=== PATIENT | male | born 1955 | race Caucasian/White ===

== ENCOUNTER 2016-08-31 09:41 | Inpatient (IN) | payer MEDICARE ==
[~2016-08-31] VITALS: Ht 172.7 cm; Wt 58.0 kg
[2016-08-31] MEDS ORDERED: CEFEPIME 2GM/50 ML (PMX) 50 ML IVPB STA (09:46)
[2016-08-31] MEDS ORDERED: SODIUM CHLORIDE 0.9% 1L BAG IV* STA (09:46)
[2016-08-31] MEDS ORDERED: ALBUTEROL 0.083% (NEB) 2.5 MG/3 ML AMP NEB STA (09:46)
[2016-08-31] MEDS ORDERED: IPRATROPIUM (NEB) 0.5 MG/2.5 ML AMP NEB STA (09:46)
[2016-08-31] MEDS ORDERED: METHYLPREDNISOLONE 125 MG INJ IV STA (09:46)
[2016-08-31] MEDS ORDERED: VANCOMYCIN 1 GM (PMX) 250 ML IVPB STA (09:46)
[2016-08-31 09:52] VITALS: Ht 172.7 cm; Wt 58.0 kg
[2016-08-31] MEDS ORDERED: ONDANSETRON 4 MG INJ IV STA (10:22)
[2016-08-31] MEDS ORDERED: morphine 4 MG/ML VIAL IV STA (10:22)
--- NOTE | 2016-08-31 10:23 | RADRPT ---
PROCEDURE: Chest Radiograph. CLINICAL INDICATION: Shortness of breath. TECHNIQUE: Single frontal chest radiograph. COMPARISON: Chest radiograph 08/31/2016 FINDINGS: Heart size is within normal limits. Atherosclerotic calcifications are present. There are diffuse interstitial infiltrates throughout the bilateral lung grace which are nonspecific. There is a sup erimposed right basilar infiltrate. The lungs are hyperinflated.. A left shoulder arthroplasty is present.. IMPRESSION: 1. Pulmonary hyperinflation and nonspecific interstitial Save opacities suggesting chronic lung jp nges. Recommend correlation with COPD. 2. Superimposed right basilar infiltrate, recommend correlation with pneumonia. Recommend follow-u p to resolution. 3. Atherosclerotic vascular disease. RPTAT: [facility] .North Gao MD, MD Date Time Electronically viewed and signed by .North Gao MD, MD on 08/31/2016 10:23 .B/
[2016-08-31 10:32] LABS: HEMATOCRIT 36.7 % (42.0-52.0); HEMOGLOBIN 11.9 g/dl (14.0-18.0); MEAN CORPUSCULAR HEMOGLOBIN 24.1 pg (29.0-33.0); MEAN CORPUSCULAR HGB CONC 32.3 g/dl (32.0-37.0); MEAN CORPUSCULAR VOLUME 74.6 fl (82.0-101.0); MEAN PLATELET VOLUME 7.4 fl (7.4-10.4); PLATELET COUNT 442 10^3/UL (140-440); RED BLOOD COUNT 4.93 10^6/ul (4.70-6.10); RED CELL DISTRIBUTION WIDTH 19.8 % (11.5-14.5); UNCORRECTED WBC 16.4 10^3/ul (4.8-10.8); WHITE BLOOD COUNT 16.4 10^3/ul (4.8-10.8)
[2016-08-31 10:38] LABS: CONDITION 1; LH ANALYZER COMMENTS 1; SUSPECT 1
[2016-08-31 10:45] LABS: INR 1.14; PROTIME 14.6 Sec (12.2-14.2); PT RATIO 1.1
[2016-08-31 10:46] LABS: PARTIAL THROMBOPLASTIN TIME 36.9 Sec (25.0-35.0)
[2016-08-31 10:47] LABS: POTASSIUM 4.5 mmol/L (3.5-5.1)
[2016-08-31 10:49] LABS: ALBUMIN/GLOBULIN RATIO 1.25; BILIRUBIN,INDIRECT 0.4 mg/dl (0-1.1); BILIRUBIN,TOTAL 0.4 mg/dl (0.2-1.3); CREATININE 0.46 mg/dl (0.61-1.24); TOTAL PROTEIN 7.2 g/dl (6.1-8.1)
[2016-08-31 11:02] LABS: TROPONIN-I 0.054 ng/ml (0.00-0.12)
[2016-08-31] MEDS ORDERED: DOCU-144 PO (11:11)
[2016-08-31] MEDS ORDERED: BUDE6HFA INHALATION (11:11)
[2016-08-31] MEDS ORDERED: CHOL100062 PO (11:12)
[2016-08-31] MEDS ORDERED: AMLO5TAB4 PO (11:12)
[2016-08-31] MEDS ORDERED: TAMS-14 PO (11:13)
[2016-08-31] MEDS ORDERED: ASPI81TA3 PO (11:13)
[2016-08-31] MEDS ORDERED: DUTA0.5C PO (11:13)
[2016-08-31] MEDS ORDERED: MULT-542 PO (11:14)
[2016-08-31] MEDS ORDERED: GABA100C14 PO (11:14)
[2016-08-31] MEDS ORDERED: ROPI0.25 PO (11:15)
[2016-08-31] MEDS ORDERED: OXYC5CAP17 PO (11:15)
[2016-08-31] MEDS ORDERED: METH750T2 PO (11:16)
--- NOTE | 2016-08-31 11:16 | ERA ---
ER Documentation Chief Complaint Date/Time DATE: 08/31/16 TIME: 11:10 Chief Complaint has chronic sob hx of copd but has low O2 sat and more cough than usual HPI 61-year-old male history of COPD who presents emergency room with fevers chills shortness of breath and cough for approximately 48 hours. The patient presents from long-term facility. He describes occasional sharp chest pain with coughing he denies any pleuritic pain and he does describe mild wheezing. The patient is still smoking. He denies any headache, rash, neck stiffness. ROS All systems reviewed and are negative except as per history of present illness. Medications Home Meds Reported Medications Mirtazapine* (Remeron*) 15 Mg Tablet, 15 MG PO HS, TAB 08/31/16 Mineral Oil* (Fleet* Mineral Oil Enema) 133 Ml Oil, 133 ML TN NEEDED Y for CONSTIPATION, ENEMA 08/31/16 Bisacodyl* (Bisacodyl*) 10 Mg Supp, 10 MG TN Q24H Y for CONSTIPATION, SUPP 08/31/16 Magnesium Hydroxide* (Milk Of Magnesia*) 400 Mg/5 Ml Oral.susp, 30 ML PO QHS Y for CONSTIPATION, ML 08/31/16 Acetaminophen* (Acetaminophen*) 650 Mg Tablet, 650 MG PO Q4 Y for PAIN AND OR ELEVATED TEMP, #30 TAB 08/31/16 Methocarbamol* (Methocarbamol*) 750 Mg Tablet, 750 MG PO TID Y for SHOULDER PAIN , TAB 08/31/16 Oxycodone Hcl* (IR) (Oxycodone Hcl*) 5 Mg Capsule, 20 MG PO Q6 Y for SEVERE PAIN LEVEL 7-10, CAP 08/31/16 Ropinirole Hcl* (Ropinirole Hcl*) 0.25 Mg Tablet, 0.25 MG PO HS, TAB 08/31/16 Gabapentin* (Gabapentin*) 100 Mg Capsule, 100 MG PO TID, #90 CAP 08/31/16 Multivitamin* (Daily Value*) 1 Each Tablet, 1 TAB PO DAILY, TAB 08/31/16 Aspirin* (Aspirin* Chew) 81 Mg Tab.chew, 81 MG PO DAILY, TAB.CHEW 08/31/16 Tamsulosin Hcl* (Flomax*) 0.4 Mg Cap.er.24h, 0.4 MG PO HS, CAP 08/31/16 Dutasteride* (Avodart*) 0.5 Mg Capsule, 0.5 MG PO DAILY, CAP 08/31/16 Cholecalciferol* (Vitamin D3*) 1,000 Unit Tablet, 1000 UNIT PO DAILY, TAB 08/31/16 Amlodipine Besylate* (Norvasc*) 5 Mg Tablet, 5 MG PO DAILY, TAB HOLD SBP<110 HR<60 08/31/16 Docusate Sodium* (Colace*) 100 Mg Capsule, 100 MG PO BID, #60 CAP 08/31/16 Budesonide-Formoterol Fumarate* (Symbicort*) 160-4.5 Hfa.aer.ad, 2 PUFF INHALATION BID, #1 EACH 08/31/16 Allergies Allergies: Coded Allergies: No Known Allergy (Unverified , 08/31/16) PMhx/Soc Hx Alcohol Use: No Hx Substance Use: No Hx Tobacco Use: Yes Smoking Status: Current every day smoker FmHx Family History: No diabetes Physical Exam Vitals Vital Signs Date Time Temp Pulse Resp B/P Pulse Ox O2 Delivery O2 Flow Rate FiO2 08/31/16 11:19 98.4 102 18 101/56 94 Nasal Cannula 3.0 08/31/16 10:44 97 20 92 Nasal Cannula 3.0 08/31/16 10:40 Nasal Cannula 3 08/31/16 09:52 100.5 113 26 105/68 81 Physical Exam General: Well developed, well nourished, no acute distress Head: Normocephalic, atraumatic. Eyes: Pupils equally reactive, EOM intact ENT: Moist mucous membranes Neck: Supple, no lymphadenopathy Respiratory: Wheezing diffusely rhonchi the right base, no respiratory distress Cardiovascular: Slight tachycardia, no murmurs, rubs, or gallops Abdominal: Soft, non-tender, non-distended, no peritoneal signs : Deferred MSK: No edema, no unilateral swelling, 5/5 strength Neurologic: Alert and oriented, moving all extremities, normal speech, no focal weakness, no cerebellar signs Skin: No rash Psych: Normal mood Result Diagram: 08/31/16 1000 08/31/16 1000 Results 24 hrs Laboratory Tests Test 08/31/16 10:00 Activated Partial Thromboplast Time 36.9Sec Alanine Aminotransferase (ALT/SGPT) 21IU/L Albumin 4.0g/dl Albumin/Globulin Ratio 1.25 Alkaline Phosphatase 106IU/L Anion Gap 19 Aspartate Amino Transf (AST/SGOT) 21IU/L Basophils # 0.010^3/ul Basophils % 0.1% Blood Morphology Comment Blood Urea Nitrogen 11mg/dl Calcium Level 9.0mg/dl Carbon Dioxide Level 26mmol/L Chloride Level 99mmol/L Creatinine 0.46mg/dl Direct Bilirubin 0.00mg/dl Eosinophils # 0.010^3/ul Eosinophils % 0.0% Globulin 3.20g/dl Glucose Level 87mg/dl Hematocrit 36.7% Hemoglobin 11.9g/dl INR International Normalized Ratio 1.14 Indirect Bilirubin 0.4mg/dl Lactic Acid Level 1.3mmol/L Lymphocytes # 1.410^3/ul Lymphocytes % 8.5% Mean Corpuscular Hemoglobin 24.1pg Mean Corpuscular Hemoglobin Concent 32.3g/dl Mean Corpuscular Volume 74.6fl Mean Platelet Volume 7.4fl Monocytes # 1.510^3/ul Monocytes % 8.9% Neutrophils # 13.510^3/ul Neutrophils % 82.5% Nucleated Red Blood Cells # 0.010^3/ul Nucleated Red Blood Cells % 0.0/100WBC Platelet Count 06277^3/UL Potassium Level 4.5mmol/L Prothrombin Time 14.6Sec Prothrombin Time Ratio 1.1 Red Blood Count 4.9310^6/ul Red Cell Distribution Width 19.8% Sodium Level 139mmol/L Total Bilirubin 0.4mg/dl Total Protein 7.2g/dl Troponin I 0.054ng/ml White Blood Count 16.410^3/ul Current Medications Medications (Trade) Dose Ordered Sig/Phill Route PRN Reason Start Time Stop Time Status Last Admin Dose Admin Sodium Chloride 1660 ml 1,660 ml BOLUS OVER 2 HOURS STAT IV* 08/31/16 09:46 08/31/16 09:52 DC 08/31/16 10:21 Vancomycin HCl 250 ml @ 125 mls/hr ONCE STAT IVPB 08/31/16 09:46 08/31/16 11:45 DC 08/31/16 10:22 Cefepime HCl (Maxipime 2gm/50 ml (Pmx)) 50 ml @ 100 mls/hr ONCE STAT IVPB 08/31/16 09:46 08/31/16 10:15 DC 08/31/16 10:22 Albuterol (Proventil 0.083% (Neb)) 2.5 mg ONCE STAT NEB 08/31/16 09:46 08/31/16 09:52 DC 08/31/16 10:43 Ipratropium [place] (Atrovent 0.02% (Neb)) 0.5 mg ONCE STAT NEB 08/31/16 09:46 08/31/16 09:52 DC 08/31/16 10:43 Methylprednisolone Sodium Succinate (Solu-Medrol) 125 mg ONCE STAT IV 08/31/16 09:46 08/31/16 09:52 DC 08/31/16 10:22 Morphine Sulfate (morphine) 4 mg ONCE STAT IV 08/31/16 10:22 08/31/16 10:23 DC 08/31/16 10:29 Ondansetron HCl (Zofran Inj) 4 mg ONCE STAT IV 08/31/16 10:22 08/31/16 10:23 DC 08/31/16 10:29 Ondansetron HCl (Zofran Inj) 4 mg BRIDGE ORDER PRN IV NAUSEA AND/OR VOMITING 08/31/16 12:00 09/01/16 11:59 Acetaminophen (Tylenol Tab) 650 mg ER BRIDGE PRN PO MILD PAIN/FEVER 08/31/16 12:00 09/01/16 11:59 Procedures/MDM EKG, MONITORS, & DIAGNOSTIC IMAGING: EKG: I reviewed and interpreted a 12-lead EKG. Rhythm: Normal sinus rhythm Ectopy: None Intervals: No abnormalities ST segments: No elevations or depressions T waves: No contiguous inversions Chest x-ray: IMPRESSION: 1. Pulmonary hyperinflation and nonspecific interstitial Save opacities suggesting chronic lung changes. Recommend correlation with COPD. 2. Superimposed right basilar infiltrate, recommend correlation with pneumonia. Recommend follow-up to resolution. 3. Atherosclerotic vascular disease. RPTAT: [facility] LAB INTERPRETATION: Leukocytosis, normal lactic acid, negative troponin MEDICAL DECISION MAKING: The patient has classic signs and symptoms consistent with likely healthcare associated pneumonia. Possible COPD exacerbation. Low clinical concern for pulmonary embolism or acute coronary syndrome. No evidence of dissection. The patient does have Sirs criteria with likely source. This meets criteria for sepsis. The patient will be treated accordingly. At this time there is no evidence of endorgan dysfunction the patient does not meet criteria for severe sepsis or septic shock. ER COURSE: The patient was given a breathing treatment, pain medication, steroids. Blood cultures were taken and the patient was given vancomycin and cefepime to cover healthcare associated pneumonia. The patient was given a 30 cc/kg bolus of saline. He remains hemodynamically stable. He does not require central line, pressors or intubation. I kept the patient and/or family informed of laboratory and diagnostic imaging results throughout the emergency room course. DISPOSITION PLAN: Medical surgical admission for management of healthcare associated pneumonia CONSULTATION: Accepting care team and consultations: I discussed the current laboratory data, diagnostic imaging and emergency care provided. Admitting team: Dr. Rutledge Admitting team indication: Insurance directed Consulting services: None Sepsis Documentation: Patient's infectious symptoms have not stabilized and the patient is at risk of rapid decompensation. The patient will be admitted for careful hydration, antibiotic therapy, and infectious source control. SEVERE SEPSIS CRITERIA: Infectious source: Healthcare associated pneumonia End organ damage indicated by: No evidence of endorgan dysfunction SEPSIS MANAGEMENT Time of recognition of severe sepsis/septic shock: Upon arrival 3 HOUR BUNDLE Blood cultures x 2 before broad-spectrum antibiotics: Yes 30 ml/kg NS bolus Completed Initial lactate normal, less than 2 Repeat lactate pending SEPTIC SHOCK ASSESSMENT: No lactic acid > 4.0 No persistent hypotension (SBP < 90 or 40 mmHg drop, MAP < 65) despite 30 mL/kg IV fluid bolus VOLUME REASSESSMENT FOR SEPTIC SHOCK: Reevaluation Time: 11:12 AM Temperature 98.4 heart rate 102 respiratory rate 16 blood pressure 101/56, pulse ox 94 on 3 L Heart Regular rate & rhythm Lungs rhonchi at the right base Skin Warm & dry Cap Refill Less than 2 seconds Peripheral pulses Radially present PERSISTENT HYPOTENSION TREATMENT: Comfort care No Central line Not Required Vasopressor started Not required I considered further perfusion assessment with CVP measurement, SCVO2, bedside ultrasound volume assessment, passive leg raise, trial of further fluid bolus. And proceeded with 30 ml/kg fluid bolus of NSS, broad spectrum antbiotics, and admission. CRITICAL CARE Critical care time 35 minutes Emergent fluid management while maintaining close respiratory support. Provision of immediate and broad-spectrum antibiotic therapy. Simultaneous assessment for possible sources in order to direct targeted therapy. Consideration for invasive and chemical support to prevent cardiopulmonary collapse. Critical care time is independent of procedures performed. Departure Diagnosis: Primary Impression: Healthcare-associated pneumonia Additional Impressions: Hypoxia COPD with exacerbation Sepsis Qualified Code: A41.9 - Sepsis, due to unspecified organism Condition: Stable ALEJANDRA MARMOLEJO MD Aug 31, 2016 11:16
[2016-08-31] MEDS ORDERED: ACET-2047 PO (11:17)
[2016-08-31] MEDS ORDERED: MAGN400O4 PO (11:18)
[2016-08-31 11:19] VITALS: TEMP 98.4
[2016-08-31] MEDS ORDERED: DULR PR (11:19)
[2016-08-31] MEDS ORDERED: FLEETOIL PR (11:20)
[2016-08-31] MEDS ORDERED: MIRT15TA PO (11:20)
[2016-08-31] MEDS ORDERED: ACETAMINOPHEN 325 MG TAB PO PRN ×2 (12:00→15:30)
[2016-08-31] MEDS ORDERED: ONDANSETRON 4 MG INJ IV PRN ×2 (12:00→15:30)
[2016-08-31 12:42] LABS: BASOPHIL # 0.3 10^3/ul (0.0-0.1); LYMPHOCYTES # 2.3 10^3/ul (0.8-2.9); MONOCYTE # 1.1 10^3/ul (0.3-0.9); NEUTROPHIL # 10.7 10^3/ul (1.6-7.5)
[2016-08-31 13:40] VITALS: BP 114/56; PULSE 70; RESP 18
[2016-08-31] MEDS: oxyCODONE 5 MG TAB PO PRN ×2 (15:29→21:00)
[2016-08-31] MEDS: LEVOFLOXACIN 500MG/D5W (PMX) 100 ML IVPB SCH (15:29)
[2016-08-31] MEDS ORDERED: NACL 0.9% 3 ML SYG IV SCH (15:30)
[2016-08-31] MEDS ORDERED: METHOCARBAMOL 750 MG TAB PO PRN (15:30)
[2016-08-31] MEDS ORDERED: ALBUTEROL/IPRATROPIUM (NEB) 3 ML AMP HHN PRN (15:30)
[2016-08-31] MEDS ORDERED: BISACODYL 10 MG SUPP PR PRN (15:30)
[2016-08-31] MEDS ORDERED: MAGNESIUM HYDROXIDE 30ML CUP PO PRN (15:30)
[2016-08-31 20:22] VITALS: BP 95/55; RESP 20
[2016-08-31] MEDS: METHYLPREDNISOLONE 125 MG INJ IV SCH (20:47)
[2016-08-31] MEDS: DOCUSATE SODIUM 100 MG CAP PO SCH (20:48)
[2016-08-31] MEDS: GABAPENTIN 100 MG CAP PO SCH (20:48)
[2016-08-31] MEDS: HEPARIN 5,000 UNIT/0.5 ML SYG SC SCH (20:56)
[2016-08-31] MEDS ORDERED: MIRTAZAPINE 15 MG TAB PO SCH (21:00)
[2016-08-31] MEDS ORDERED: ROPINIROLE 0.25 MG TAB PO SCH (21:00)
[2016-08-31] MEDS ORDERED: TAMSULOSIN (SR) 0.4 MG CAP PO SCH (21:00)
[2016-08-31] MEDS: SALMETEROL/FLUTICASONE 250/50 INHA INH SCH (21:00)
[2016-08-31] MEDS ORDERED: NON-FORMULARY/PATIENT OWN MED (Budesonide-Formoterol Fumarate* (Symbicort*) 2 PUFF) INHALATION SCH (21:00)
[2016-09-01] MEDS: oxyCODONE 5 MG TAB PO PRN ×4 (03:40→19:26)
[2016-09-01 05:20] LABS: HEMATOCRIT 30.1 % (42.0-52.0); HEMOGLOBIN 9.7 g/dl (14.0-18.0); MEAN CORPUSCULAR HEMOGLOBIN 24.4 pg (29.0-33.0); MEAN CORPUSCULAR HGB CONC 32.3 g/dl (32.0-37.0); MEAN CORPUSCULAR VOLUME 75.6 fl (82.0-101.0); MEAN PLATELET VOLUME 7.4 fl (7.4-10.4); PLATELET COUNT 356 10^3/UL (140-440); RED BLOOD COUNT 3.99 10^6/ul (4.70-6.10); RED CELL DISTRIBUTION WIDTH 20.1 % (11.5-14.5); UNCORRECTED WBC 16.8 10^3/ul (4.8-10.8); WHITE BLOOD COUNT 16.8 10^3/ul (4.8-10.8)
[2016-09-01 05:30] LABS: ALBUMIN 3.2 g/dl (3.3-4.9)
[2016-09-01 05:31] LABS: POTASSIUM 4.4 mmol/L (3.5-5.1)
[2016-09-01 05:33] LABS: BILIRUBIN,INDIRECT 0.2 mg/dl (0-1.1); BILIRUBIN,TOTAL 0.2 mg/dl (0.2-1.3); CREATININE 0.44 mg/dl (0.61-1.24); PHOSPHORUS 2.4 mg/dl (2.5-4.9); TOTAL PROTEIN 6.4 g/dl (6.1-8.1)
[2016-09-01 05:34] LABS: CALCIUM 8.7 mg/dl (8.4-10.2)
[2016-09-01 05:38] LABS: CONDITION 1; LH ANALYZER COMMENTS 1
[2016-09-01 07:29] VITALS: BP 106/59; RESP 18
[2016-09-01 07:57] LABS: HYPOCHROMASIA 3+; LYMPHOCYTES # 1.3 10^3/ul (0.8-2.9); MICROCYTOSIS 2+; MONOCYTE # 0.8 10^3/ul (0.3-0.9); NEUTROPHIL # 12.8 10^3/ul (1.6-7.5)
[2016-09-01 07:58] LABS: ANISOCYTOSIS 2+; PLATELET ESTIMATE PLT APPEAR ADEQUATE
[2016-09-01] MEDS ORDERED: CHOLECALCIFEROL 1,000 UNIT TAB PO SCH (09:00)
[2016-09-01] MEDS ORDERED: MULTIVITAMINS THERAPEUTIC TAB PO SCH (09:00)
[2016-09-01] MEDS ORDERED: ASPIRIN 81 MG TAB PO SCH (09:00)
[2016-09-01] MEDS ORDERED: AMLODIPINE 5 MG TAB PO SCH (09:00)
[2016-09-01] MEDS ORDERED: DUTASTERIDE 0.5 MG CAP PO SCH (09:00)
[2016-09-01] MEDS: DOCUSATE SODIUM 100 MG CAP PO SCH (09:01)
[2016-09-01] MEDS: METHYLPREDNISOLONE 125 MG INJ IV SCH (09:02)
[2016-09-01] MEDS: SALMETEROL/FLUTICASONE 250/50 INHA INH SCH (09:02)
[2016-09-01] MEDS: GABAPENTIN 100 MG CAP PO SCH ×2 (09:02→13:04)
[2016-09-01 09:07] VITALS: BP 110/62; PULSE 82
[2016-09-01] MEDS: HEPARIN 5,000 UNIT/0.5 ML SYG SC SCH (09:25)
--- NOTE | 2016-09-01 12:30 | HP ---
Date/Time of Note Date/Time of Note DATE: 09/01/16 TIME: 12:25 Assessment/Plan VTE Prophylaxis VTE Prophylaxis Intervention: heparin Lines/Catheters IV Catheter Type (from Nrsg): Saline Lock Assessment/Plan Assessment/Plan IMPRESSION 1. COPD Exacerbation 2. Sepsis, as evidenced by leukocytosis and tachycard, most likely 2/2 PNA PLAN oxygen, bronchodilators, steroid Abx for PNA f/u culture results DVT ppx HPI/ROS Admit Date/Time Admit Date/Time Aug 31, 2016 at 11:37 Hx of Present Illness 61-year-old male history of COPD who presents emergency room with fevers chills shortness of breath and cough for approximately 48 hours. The patient presents from custodial facility. He describes occasional sharp chest pain with coughing he denies any pleuritic pain and he does describe mild wheezing. The patient is still smoking. He denies any headache, rash, neck stiffness. PMH/Family/Social Past Medical History Medical History: other (COPD) Past Surgical History Past Surgical Hx: other (shoulder surgery) Social History Alcohol Use: occasionally Smoking Status: Current every day smoker Drug Use: none Exam/Review of Systems Vital Signs Vitals Vital Signs Date Time Temp Pulse Resp B/P Pulse Ox O2 Delivery O2 Flow Rate FiO2 09/01/16 09:07 82 110/62 09/01/16 07:29 98.4 18 96 08/31/16 21:46 2.0 08/31/16 20:45 Nasal Cannula Intake and Output 08/31/16 08/31/16 09/01/16 15:00 23:00 07:00 Intake Total 500 ml 1500 ml Output Total 1100 ml Balance 500 ml 400 ml Exam Constitutional: alert, oriented, other (appears weak) Head: atraumatic, normocephalic Respiratory: diminished breath sounds, wheezing Cardiovascular: regular rate and rhythm Gastrointestinal: non-tender, soft Extremities: normal pulses Labs Result Diagram: 09/01/16 0440 09/01/16 0440 Medications Medications Current Medications Ondansetron HCl (Zofran Inj) 4 mg Q6H PRN IV NAUSEA AND/OR VOMITING; Start 08/31 at 15:30 Acetaminophen (Tylenol Tab) 650 mg Q6H PRN PO PAIN LEVEL 1-3 OR FEVER; Start at 15:30 Heparin Sodium (Porcine) (Heparin (5000 Units/0.5 ml)) 5,000 unit Q12 SC Last administered on 09/01/16 09:25; Admin Dose 5,000 UNIT; Start 08/31/16 at 21:00 Amlodipine Besylate (Norvasc) 5 mg DAILY PO Last administered on 09/01/16 09:02 ; Admin Dose 5 MG; Start 09/01/16 at 09:00 Aspirin (Aspirin) 81 mg DAILY PO Last administered on 09/01/16 09:01; Admin Dose 81 MG; Start 09/01/16 at 09:00 Bisacodyl (Dulcolax Supp) 10 mg Q24H PRN [place] CONSTIPATION; Start 08/31/16 at 15: 30 Cholecalciferol (Vitamin D) 1,000 unit DAILY PO Last administered on 09/01/16 09:01; Admin Dose 1,000 UNIT; Start 09/01/16 at 09:00 Docusate Sodium (Colace) 100 mg BID PO Last administered on 09/01/16 09:01; Admin Dose 100 MG; Start 08/31/16 at 21:00 Dutasteride (Avodart) 0.5 mg DAILY PO Last administered on 09/01/16 09:01; Admin Dose 0.5 MG; Start 09/01/16 at 09:00 Gabapentin (Neurontin) 100 mg TID PO Last administered on 09/01/16 09:02; Admin Dose 100 MG; Start 08/31/16 at 21:00 Magnesium Hydroxide (Milk Of Mag) 30 ml QHS PRN PO CONSTIPATION; Start 08/31/16 at 15:30 Methocarbamol (Robaxin) 750 mg TID PRN PO SHOULDER PAIN Last administered on 17:54; Admin Dose 750 MG; Start 08/31/16 at 15:30 Mirtazapine (Remeron) 15 mg HS PO Last administered on 08/31/16 20:48; Admin Dose 15 MG; Start 08/31/16 at 21:00 Multivitamins Therapeutic (Theragran) 1 tab DAILY PO Last administered on 09:01; Admin Dose 1 TAB; Start 09/01/16 at 09:00 Oxycodone HCl (Roxicodone) 20 mg Q6 PRN PO SEVERE PAIN LEVEL 7-10 Last administered on 09/01/16 09:03; Admin Dose 20 MG; Start 08/31/16 at 15:30 Ropinirole HCl (Requip) 0.25 mg HS PO Last administered on 08/31/16 20:48; Admin Dose 0.25 MG; Start 08/31/16 at 21:00 Tamsulosin HCl 0.4 mg 0.4 mg HS PO Last administered on 08/31/16 20:48; Admin Dose 0.4 MG; Start 08/31/16 at 21:00 Levofloxacin/ Dextrose (Levaquin 500mg/ D5W 100 ml (Pmx)) 100 ml @ 100 mls/hr Q24H IVPB Last administered on 08/31/16 15:29; Admin Dose 100 MLS/HR; Start 08/31/16 at 15:30 Methylprednisolone Sodium Succinate (Solu-Medrol) 60 mg Q12 IV Last administered on 09/01/16 09:02; Admin Dose 60 MG; Start 08/31/16 at 21:00 Salmeterol Xinafoate/ Fluticasone (Advair 250/50 Diskus) 1 inh BID INH Last administered on 09/01/16 09:02; Admin Dose 1 INH; Start 08/31/16 at 21:00 AMISH STINSON MD Sep 01, 2016 12:29
[2016-09-01] MEDS ORDERED: PRED20TA PO (15:34)
[2016-09-01] MEDS ORDERED: LEVO500T10 PO (15:34)
--- NOTE | 2016-09-01 15:36 | PDOCDIS ---
Discharge Instructions CONDITION Patient Condition: Stable HOME CARE INSTRUCTIONS: Diet Instructions: Regular ACTIVITY: Activity Restrictions: Slowly Increase Activity Special Program Special Exercises FOLLOW UP/APPOINTMENTS Appointments follow-up with primary care doctor OTHER ORDERS: Other Orders: Go to the nearest ER or call 911 if you have shortness of breath, chest pain, fever, chills AMISH STINSON MD Sep 01, 2016 15:35
[2016-09-01] MEDS: LEVOFLOXACIN 500MG/D5W (PMX) 100 ML IVPB SCH (15:46)
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
[2016-09-01 19:13] VITALS: BP 127/58; RESP 20
== END 2016-09-01 19:35 | DRG 871 ==
LOC: E/R 09:41 → MS2 11:37
PROVIDERS: ADMIT Hospitalist; ATTEND Hospitalist
DX: A41.9 Sepsis, unspecified organism (principal); J18.9 Pneumonia, unspecified organism; J44.1 Chronic obstructive pulmonary disease with (acute) exacerbation
CPT/HCPCS: 36415; 71010; 80053; 83605; 83735; 84100; 84484; 85025; 85610; 85730; 87040; 87081; 93005; 94664; 96374; 96375; J1956; J2270; J2405; J2930; J3370; J7030